=== PATIENT | female | born 1990 | race Caucasian/White ===

== ENCOUNTER 2020-01-20 11:35 | Emergency (ER) | payer OTHER ==
--- NOTE | 2020-01-20 11:43 | TELE ---
HPI Do you have fever,cough or shortness of breath?: No - General Reason For Visit: COVID19 TESTING History Source: Patient Past History - Travel History Traveled outside of the country in the last 30 days: No Close contact w/someone who was outside of country & ill: No Review of Systems - Review of Systems Able to Perform ROS?: Yes Comments:: 01/20/20 11:42 CONSTITUTIONAL: Absent: fever, chills, diaphoresis, generalized weakness, malaise, loss of appetite HEENT: Absent: rhinorrhea, nasal congestion, throat pain, throat swelling, difficulty swallowing, mouth swelling, ear pain, eye pain, visual Changes CARDIOVASCULAR: Absent: chest pain, loss of consciousness, palpitations, irregular heart rate, peripheral edema RESPIRATORY: Absent: cough, shortness of breath, dyspnea with exertion, orthopnea, wheezing, stridor, hemoptysis GASTROINTESTINAL: Absent: abdominal pain, abdominal distension, nausea, vomiting, diarrhea, constipation, melena, hematochezia SKIN: Absent: rash, itching, pallor NEUROLOGIC: Absent: headache, focal weakness or paresthesias, dizziness, unsteady gait, seizure, mental status changes, bladder or bowel incontinence PSYCHIATRIC: Absent: anxiety, depression, suicidal or homicidal ideation, hallucinations. Limited Slovenian proficient: No *Physical Exam - Physical Exam 01/20/20 11:42 GENERAL: Well developed, well nourished. Awake and alert. No acute distress. HEENT: Normocephalic, atraumatic. PERRLA, EOMI. NECK: Supple. Full ROM. PULMONARY: No evidence of respiratory distress. EXTREMITIES: No cyanosis. SKIN: Warm and dry. Normal capillary refill. No rashes. No jaundice. NEUROLOGICAL: Alert, awake, appropriate. PSYCHIATRIC: Cooperative. Good eye contact. Appropriate mood and affect. - Medical Decision Making 01/20/20 11:42 The patient is a 29-year-old female presenting to telehealth for COVID testing. She recently was on vacation last week at the [place] and would now like a test to make sure she did not contract COVID while on vacation. Denies cough, fever, chills, shortness of breath and diarrhea. A/P: Need for COVID testing Patient is currently asymptomatic. Given recent travel will order COVID swab. Patient referred to the [facility] emergency department. Department of health isolation precautions given. Discharge Diagnosis at time of Disposition: Counseled about COVID-19 virus infection - Referrals - Patient Instructions
== END 2020-01-20 11:47 | disposition home or self-care (01) ==
LOC: JVIRT 11:35
DX: Z11.59 Encounter for screening for other viral diseases (principal)
CPT/HCPCS: Q3014-GT; U0003

== ENCOUNTER 2020-05-10 14:13 | Emergency (ER) | payer OTHER | END 2020-05-10 15:52 | disposition home or self-care (01) | LOC: JVIRT 14:13 | DX: Z11.59 Encounter for screening for other viral diseases (principal) | CPT/HCPCS: Q3014-GT ==